=== PATIENT | male | born 1970 | race Caucasian/White ===

== ENCOUNTER 2017-08-02 08:46 | Emergency (ER) | payer OTHER, MEDICARE ==
[2017-08-02 08:51] VITALS: BP 123/73
--- NOTE | 2017-08-02 08:59 | ED GENERAL ADULT ---
History of Present Illness General Chief Complaint: General Adult Stated Complaint: MED REFILLS Source: patient Exam Limitations: no limitations Vital Signs & Intake/Output Vital Signs & Intake/Output Vital Signs Date Time Temp Pulse Resp B/P B/P Pulse O2 O2 Flow FiO2 Mean Ox Delivery Rate 08/02 0851 98.5 92 16 123/73 96 Room Air Allergies Coded Allergies: No Known Allergies (08/02/17) Reconcile Medications Lacosamide (Vimpat) 200 MG TABLET 1 TAB PO BID seizures Triage Note: PT TO ED FOR MED REFILL OF HIS VIMPAT. STATES HE HAS A HX OF SEIZURES. Triage Nurses Notes Reviewed? yes Onset: Gradual Duration: day(s): (1) Injury Environment: home Severity: moderate No Modifying Factors: none HPI: patient is a 46-year-old male with history of grand mal seizures presenting to the emergency department requesting refill of seizure medication. Patient recently was assigned stay insurance, has not gotten a primary care physician yet. Patient in the emergency department here to fill his prescription for vimpat 200 mg. Denies any seizures. Last dose was yesterday. Denies any nausea vomiting fevers chills chest pain or shortness of breath. (Chandni Blank) Past History Travel History Traveled to [place] past 21 day No Medical History Any Pertinent Medical History? see below for history Surgical History Surgical History: non-contributory Psychosocial History What is your primary language Turkish Tobacco Use: Never used Family History Hx Contributory? No (Chandni Blank) Review of Systems Review of Systems Constitutional: Reports: no symptoms. Comments Review of systems: See HPI, All other systems negative. Constitutional, no chills fever or weight loss HEENT: No visual changes no sore throat no congestion Cardiovascular: No chest pain ,palpitation Skin, no jaundice no rashes Respiratory: No dyspnea cough sputum or hemoptysis GI: No nausea no vomiting Muscle skeletal: no back pain, no neck pain, Neurologic: No numbness no confusion Psych: No stress anxiety Immunology: No splenectomy or history of AIDS (Chandni Blank) Physical Exam Physical Exam General Appearance: well developed/nourished, no apparent distress, alert, awake , comfortable Comments: Well-developed well-nourished person in no acute distress HEENT: Atraumatic, normocephalic Neck: normal inspection Respiratory: No respiratory distress. Extremity: No edema Neuro: Alert oriented x3 Skin: No appreciable rash on exposed skin, skin is warm and dry. Psych: Mood and affect is normal, memory and judgment is normal. Core Measures ACS in differential dx? No CVA/TIA Diagnosis: No Sepsis Present: No Sepsis Focused Exam Completed? No (Chandni Blank) Progress Differential Diagnoses I considered the following diagnoses in my evaluation of the patient: Medication refill, medication noncompliance Plan of Care: Patient given prescription for seizure medication. He'll follow up with his primary care physician. Patient nontoxic. Vitals are stable. Initial ED EKG: none (Chandni Blank) Departure Departure Time of Disposition: 903 Disposition: HOME OR SELF CARE Condition: Stable Clinical Impression Primary Impression: Medication refill Referrals: Patient Has No Primary Care Dr (PCP/Family) Additional Instructions: Follow-up with your primary care physician as scheduled. Take all medications as prescribed. Return for worsening symptoms or concerns. Departure Forms: Customer Survey General Discharge Information Prescriptions: Current Visit Scripts Lacosamide (Vimpat) 1 TAB PO BID #60 TAB (Chandni Blank) PA/[employer] Co-Sign Statement Statement: ED Attending supervision documentation- [] I saw and evaluated the patient. I have also reviewed all the pertinent lab results and diagnostic results. I agree with the findings and the plan of care as documented in the PA's/[employer]'s documentation. [X] I have reviewed the ED Record and agree with the PA's/[employer]'s documentation. [] Additions or exceptions (if any) to the PAs/[employer]'s note and plan are summarized below: [] (Pascual Jose DO) Critical Care Note Critical Care Note Critical Care Time: non-applicable (Chandni Blank)
[2017-08-02] MEDS ORDERED: VIMPAT200 M1 PO (09:06)
== END 2017-08-02 09:15 ==
LOC: ERH 08:46
DX: Z76.0 Encounter for issue of repeat prescription (principal)
CPT/HCPCS: 99281